=== PATIENT | female | born 1970 | race Caucasian/White ===

== ENCOUNTER 2016-12-08 19:05 | Emergency (ER) | payer OTHER ==
[~2016-12-08] VITALS: Ht 175.2 cm; Wt 64.4 kg
[~2016-12-08 19:05] MED LIST: ALBUTEROL0.09 MG/A2 INH; ALBUTEROL2.5 MG/0.5 INH; AMOXICILLIN500 M2 PO; AMOXICILLIN500 MG PO; ANAPROX DS550 MG PO; ARTHROTEC50 MG PO; ASTELIN137 MCG/AC NS; CARBAMAZEPINE200 M1 PO; CIPROFLOXACIN500 MG PO; CLARITIN-D 12 H1 TAB PO; CLARITIN10 MG PO; CLEOCIN15 MG/ML; CLEOCIN150 MG PO; CLINDAMYCIN HC300 MG PO; DARVOCET N 1001 TAB PO; DONNATAL1 TAB PO; FIORICET 325 MG1 TAB PO; FLEXERIL10 MG PO; HYDROXYZINE PAM50 MG PO; IMODIUM2 MG PO; INDERAL10 MG PO; LOPID600 MG PO; LYRICA150 MG PO; LYRICA200 MG PO; LYRICA25 MG PO; LYRICA50 MG PO; MOTRIN800 MG PO; MUCINEX1200 M1 PO; NKHM; NORFLEX100 MG PO; PHENERGAN25 M1 PO; PREDNICOT20 MG PO; Peridex 473 ML473 ML PO; SEPTRA DS 800 M1 TAB PO; TEGRETOL100 MG PO; TEGRETOL200 MG PO; TESSALON PERLE100 M1 PO; TRAMADOL HCL50 MG PO; TYLENOL W/CODEI1 TA2 PO; Tegretol-Xr 10100 MG PO; Tegretol100 MG/5 M PO; ULTRAM50 MG PO; VIBRAMYCIN HYC100 MG PO; VIBRAMYCIN100 MG PO; VICODIN 5/500 505 MG PO; VICODIN 500 MG-1 TAB PO; ZANAFLEX4 M2 PO; ZANTAC150 MG PO; ZITHROMAX Z PA250 MG PO; ZITHROMAX250 MG PO; ZOCOR5 MG PO; ZOFRAN4 MG PO; ZOVIRAX 5%15 GM T
[2016-12-08 19:45] VITALS: BP 108/72
[2016-12-08] MEDS ORDERED: VOLTAREN50 M1 PO (19:47)
[2016-12-08] MEDS ORDERED: FLONASE ALLERG9.9 ML NAS (20:31)
[2016-12-08] MEDS ORDERED: CLARITIN-D 12 H1 TAB PO (20:31)
== END 2016-12-08 20:37 | disposition home or self-care (01) ==
LOC: ED 19:05
DX: J01.90 Acute sinusitis, unspecified (principal); F17.200 Nicotine dependence, unspecified, uncomplicated; Z88.1 Allergy status to other antibiotic agents; Z88.5 Allergy status to narcotic agent; Z88.6 Allergy status to analgesic agent

== ENCOUNTER 2017-03-08 15:53 | Emergency (ER) | payer OTHER ==
[~2017-03-08] VITALS: Ht 175.2 cm; Wt 72.6 kg
[~2017-03-08 15:53] MED LIST changes: +FLONASE ALLERG9.9 ML NAS; +VOLTAREN50 M1 PO
[2017-03-08 16:01] VITALS: BP 98/73
[2017-03-08 16:35] LABS: BILIRUBIN NEGATIVE (NEGATIVE); BLOOD 1+ (NEGATIVE); CLARITY SL CLOUDY (CLEAR); COLOR YELLOW (YELLOW); GLUCOSE NEGATIVE (NEGATIVE); KETONE NEGATIVE (NEGATIVE); LEUKO ESTERASE 1+ (NEGATIVE); NITRITE NEGATIVE (NEGATIVE); PROTEIN NEGATIVE (NEGATIVE); SPECIFIC GRAVITY <= 1.005 (1.005-1.030); UROBILINOGEN 0.2 E.U./dl (0.2-1.0)
[2017-03-08 16:43] LABS: BACTERIA 2+; RBC 0-2 rbc/hpf (0-2); URINE REFLEX COMMENT YES (NO); WBC 21-30 wbc/hpf (0-5)
[2017-03-08] MEDS ORDERED: PYRIDIUM100 MG PO (16:55)
[2017-03-08] MEDS ORDERED: BACTRIM DS 8001 TA1 PO (16:55)
== END 2017-03-08 16:57 | disposition home or self-care (01) ==
LOC: ED 15:53
PROVIDERS: Nurse Practitioner Family
DX: N30.01 Acute cystitis with hematuria (principal); F17.200 Nicotine dependence, unspecified, uncomplicated; Z88.1 Allergy status to other antibiotic agents; Z88.6 Allergy status to analgesic agent; Z79.899 Other long term (current) drug therapy

== ENCOUNTER 2017-03-31 00:37 | Emergency (ER) | payer OTHER ==
[~2017-03-31] VITALS: Ht 175.2 cm; Wt 74.8 kg
[~2017-03-31 00:37] MED LIST changes: +BACTRIM DS 8001 TA1 PO; +PYRIDIUM100 MG PO
[2017-03-31 00:42] VITALS: BP 107/68
[2017-03-31 01:29] LABS: BASO % 0.5 % (0.0-1.0); EOS # 0.3 10*3/uL (0.0-0.4); EOS % 4.4 % (1.0-4.0); HEMATOCRIT 40.7 % (37.0-47.0); HEMOGLOBIN 13.9 g/dl (12.0-16.0); LYMPH # 2.9 10*3/uL (1.3-4.4); LYMPH % 39.4 % (27.0-41.0); MEAN CELL VOLUME 96.4 fl (81.0-99.0); MEAN CORPUSCULAR HGB 32.9 pg (27.0-31.0); MEAN CORPUSCULAR HGB CONC 34.2 g/dl (33.0-37.0); MEAN PLATELET VOLUME 9.9 fl (9.6-12.3); MONO # 0.4 10*3/uL (0.1-1.0); MONO % 4.8 % (3.0-9.0); NEUT # 3.8 10*3/uL (2.3-7.9); NEUT % 50.8 % (47.0-73.0); PLATELET COUNT AUTOMATED 238 10*3/uL (130-400); RED BLOOD COUNT 4.22 10*6/uL (4.10-5.10); RED CELL DISTRI WIDTH 12.9 % (0-14.5); WHITE BLOOD COUNT 7.4 10*3/uL (4.8-10.8)
[2017-03-31 01:47] LABS: ALBUMIN 3.3 gm/dl (3.1-4.5); ALKALINE PHOSPHATASE 59 U/L (45-117); BUN 13 mg/dl (7-24); CHLORIDE 105 mmol/L (98-107); CREATININE 0.62 mg/dL (0.55-1.02); LIPASE 210 U/L (73-393); MAGNESIUM 2.3 mg/dL (1.5-2.1); SGOT/AST 33 IU/L (3-35); SGPT/ALT 55 U/L (12-78); SODIUM 140 mmol/L (136-145); TOTAL PROTEIN 6.8 gm/dL (6.4-8.2)
[2017-03-31 01:49] LABS: TROPONIN I < 0.015 ng/ml (<0.045)
[2017-03-31 02:32] LABS: BILIRUBIN NEGATIVE (NEGATIVE); BLOOD NEGATIVE (NEGATIVE); CLARITY CLEAR (CLEAR); COLOR YELLOW (YELLOW); GLUCOSE NEGATIVE (NEGATIVE); KETONE NEGATIVE (NEGATIVE); LEUKO ESTERASE TRACE (NEGATIVE); NITRITE NEGATIVE (NEGATIVE); SPECIFIC GRAVITY <= 1.005 (1.005-1.030); UROBILINOGEN 0.2 E.U./dl (0.2-1.0)
[2017-03-31 02:37] LABS: EPITHELIAL CELLS 40-45
[2017-03-31] MEDS ORDERED: ZOFRAN ODT4 MG SL (03:42)
[2017-03-31] MEDS ORDERED: NORCO 5-325 TA1 EACH PO (03:42)
== END 2017-03-31 04:20 | disposition home or self-care (01) ==
LOC: ED 00:37
PROVIDERS: Emergency Medicine Emergency Medical Services
DX: N20.1 Calculus of ureter (principal); N23 Unspecified renal colic; F17.200 Nicotine dependence, unspecified, uncomplicated; Z88.1 Allergy status to other antibiotic agents; Z88.6 Allergy status to analgesic agent; Z79.899 Other long term (current) drug therapy

== ENCOUNTER 2017-08-10 09:45 | Emergency (ER) | payer OTHER ==
[~2017-08-10] VITALS: Ht 175.2 cm; Wt 72.6 kg
[~2017-08-10 09:45] MED LIST changes: +NORCO 5-325 TA1 EACH PO; +ZOFRAN ODT4 MG SL
[2017-08-10 09:54] VITALS: BP 120/80
[2017-08-10] MEDS ORDERED: KLONOPIN1 M1 PO (09:56)
[2017-08-10] MEDS ORDERED: CLINDAMYCIN HC300 MG PO (10:06)
== END 2017-08-10 10:10 | disposition home or self-care (01) ==
LOC: ED 09:45
DX: K04.7 Periapical abscess without sinus (principal); F17.200 Nicotine dependence, unspecified, uncomplicated; Z88.1 Allergy status to other antibiotic agents; Z88.6 Allergy status to analgesic agent

== ENCOUNTER → 2018-03-08 | Outpatient (CLI) | payer OTHER ==
[~2018-03-08] MED LIST changes: +CLINDAMYCIN150 MG PO; +KLONOPIN1 M1 PO
== END | disposition home or self-care (01) ==
LOC: ORTHO 01:19
DX: M16.12 Unilateral primary osteoarthritis, left hip (principal); Z91.81 History of falling

== ENCOUNTER 2018-03-10 15:53 | Emergency (ER) | payer OTHER ==
[~2018-03-10] VITALS: Ht 175.2 cm; Wt 78.9 kg
[2018-03-10 15:53] VITALS: BP 117/74
[~2018-03-10 15:53] MED LIST changes: -CLINDAMYCIN150 MG PO
[2018-03-10 17:04] LABS: BASO % 0.4 % (0.0-1.0); EOS # 0.3 10*3/uL (0.0-0.4); EOS % 3.7 % (1.0-4.0); HEMATOCRIT 39.6 % (37.0-47.0); HEMOGLOBIN 13.4 g/dl (12.0-16.0); LYMPH # 2.1 10*3/uL (1.3-4.4); LYMPH % 29.3 % (27.0-41.0); MEAN CELL VOLUME 99.2 fl (81.0-99.0); MEAN CORPUSCULAR HGB 33.6 pg (27.0-31.0); MEAN CORPUSCULAR HGB CONC 33.8 g/dl (33.0-37.0); MEAN PLATELET VOLUME 10.3 fl (9.6-12.3); MONO # 0.2 10*3/uL (0.1-1.0); MONO % 3.3 % (3.0-9.0); NEUT # 4.4 10*3/uL (2.3-7.9); NEUT % 63.2 % (47.0-73.0); PLATELET COUNT AUTOMATED 215 10*3/uL (130-400); RED BLOOD COUNT 3.99 10*6/uL (4.10-5.10); RED CELL DISTRI WIDTH 13.3 % (0-14.5)
[2018-03-10 17:15] LABS: ACT PARTIAL THROMBO TIME 22.5 SECONDS (20.8-31.5); INTERNATIONAL NORM RATIO 0.9 (2.0-3.5)
[2018-03-10 17:19] LABS: ALBUMIN 3.7 gm/dl (3.1-4.5); ALKALINE PHOSPHATASE 65 U/L (45-117); BUN 10 mg/dl (7-24); CHLORIDE 108 mmol/L (98-107); CREATININE 0.61 mg/dL (0.55-1.02); POTASSIUM 3.9 mmol/L (3.5-5.1); SGOT/AST 28 IU/L (3-35); SGPT/ALT 50 U/L (12-78); SODIUM 142 mmol/L (136-145); TOTAL PROTEIN 7.2 gm/dL (6.4-8.2)
[2018-03-10] MEDS ORDERED: CLINDAMYCIN150 MG PO (19:13)
== END 2018-03-10 19:17 | disposition left against medical advice (07) ==
LOC: ED 15:53
PROVIDERS: Physician Assistant
DX: K08.89 Other specified disorders of teeth and supporting structures (principal); F17.200 Nicotine dependence, unspecified, uncomplicated; Z88.6 Allergy status to analgesic agent; Z88.1 Allergy status to other antibiotic agents; Z88.8 Allergy status to other drugs, medicaments and biological substances; Z98.51 Tubal ligation status

== ENCOUNTER → 2018-05-02 | Outpatient (CLI) | payer OTHER ==
[~2018-05-02] MED LIST changes: +CLINDAMYCIN150 MG PO; +Tobrex Ophth S2.5 ML OPH
--- NOTE | ~2018-05-02 | EEG ---
[place], [place] ELECTROENCEPHALOGRAM REPORT [facility]: [id number] UNIT #: [id number] ROOM: DOCTOR: LYSSA SPEAR JR,TERE DOS: This 48-year-old woman on uncertain medications despite the following underlying rhythms - well organized, 9 Hz, 30-40 microvolt alpha rhythms in both posterior regions. 18 Hz, 10 microvolt beta rhythms were noted in both precentral regions. There was symmetrical attenuation of the posterior alpha rhythms with eye opening. Fair hyperventilation produced no abnormalities. There was good driving to photic stimulation without lesions. The patient did become drowsy, progressing uneventfully through stage I of somnolence. Throughout this recording, despite minimal to moderate talking and movement artifacts, there were no focal abnormalities or epileptiform discharges. IMPRESSION: Normal awake and drowsy EEG. Clinical correlation was highly advised. TERE OMALLEY MD CM:EEG:ELECTROENCEPHALOGRAM REPORT [id number] TERE OMALLEY MD, JR
== END | disposition home or self-care (01) ==
LOC: CP 11:47
DX: R56.9 Unspecified convulsions (principal)

== ENCOUNTER 2018-05-17 15:48 | Emergency (ER) | payer OTHER ==
[~2018-05-17] VITALS: Ht 175.2 cm; Wt 72.6 kg
[~2018-05-17 15:48] MED LIST changes: -Tobrex Ophth S2.5 ML OPH
[2018-05-17 15:51] VITALS: BP 130/83
[2018-05-17] MEDS ORDERED: Tobrex Ophth S2.5 ML OPH (16:06)
== END 2018-05-17 16:17 | disposition home or self-care (01) ==
LOC: ED 15:48
DX: H10.9 Unspecified conjunctivitis (principal); Z88.8 Allergy status to other drugs, medicaments and biological substances; Z88.1 Allergy status to other antibiotic agents; Z88.6 Allergy status to analgesic agent; Z79.899 Other long term (current) drug therapy

== ENCOUNTER → 2018-06-05 | Outpatient (CLI) | payer OTHER ==
[~2018-06-05] MED LIST changes: +Tobrex Ophth S2.5 ML OPH
== END | disposition home or self-care (01) ==
LOC: MRI 14:00
DX: G93.89 Other specified disorders of brain (principal); R56.9 Unspecified convulsions

== ENCOUNTER 2019-01-12 23:06 | Emergency (ER) | payer OTHER ==
[~2019-01-12] VITALS: Ht 175.2 cm; Wt 82.1 kg
[~2019-01-12 23:06] MED LIST changes: +CYCLOBENZAPRINE10 MG PO; -LYRICA150 MG PO; +LYRICA200 M1 PO
[2019-01-12 23:10] VITALS: BP 94/64
== END 2019-01-13 00:15 | disposition home or self-care (01) ==
LOC: ED 23:06
DX: H10.9 Unspecified conjunctivitis (principal); Z88.6 Allergy status to analgesic agent; Z88.1 Allergy status to other antibiotic agents

== ENCOUNTER 2019-03-16 19:41 | Emergency (ER) | payer OTHER ==
[~2019-03-16] VITALS: Ht 175.2 cm; Wt 85.3 kg
[2019-03-16 19:46] VITALS: BP 155/82
[2019-03-16] MEDS ORDERED: CHANTIX1 M1 PO (19:55)
[2019-03-16] MEDS ORDERED: CYCLOBENZAPRINE10 MG PO (19:55)
[2019-03-16] MEDS ORDERED: ADDERALL5 MG PO (19:56)
[2019-03-16] MEDS ORDERED: VITAMIN D50000 UNIT PO (19:56)
[2019-03-16] MEDS ORDERED: MEDROL DOSEPAK4 MG PO (21:51)
== END 2019-03-16 22:05 | disposition home or self-care (01) ==
LOC: ED 19:41
DX: S39.012A Strain of muscle, fascia and tendon of lower back, initial encounter (principal); M53.3 Sacrococcygeal disorders, not elsewhere classified; Z79.899 Other long term (current) drug therapy; Z88.6 Allergy status to analgesic agent; Z88.1 Allergy status to other antibiotic agents; Z88.8 Allergy status to other drugs, medicaments and biological substances; X58.XXXA Exposure to other specified factors, initial encounter; Y93.89 Activity, other specified; Y92.89 Other specified places as the place of occurrence of the external cause; Y99.8 Other external cause status

== ENCOUNTER → 2019-04-20 | Outpatient (CLI) | payer OTHER ==
[~2019-04-20] MED LIST changes: +ADDERALL5 MG PO; +CHANTIX1 M1 PO; +MEDROL DOSEPAK4 MG PO; +VITAMIN D50000 UNIT PO
[2019-04-20 10:55] LABS: PHOSPHOROUS 4.2 mg/dL (2.5-4.9)
[2019-04-20 11:23] LABS: VITAMIN D, 25-HYDROXY 45.7 ng/mL (30-100)
[2019-04-20 11:24] LABS: PTH INTACT 43.9 pg/mL (18.5-88.0)
== END | disposition home or self-care (01) ==
LOC: LAB 08:43 → MRI 08:43
PROVIDERS: Family Medicine
DX: M47.816 Spondylosis without myelopathy or radiculopathy, lumbar region (principal); M51.36 Other intervertebral disc degeneration, lumbar region; M48.061 Spinal stenosis, lumbar region without neurogenic claudication; M53.3 Sacrococcygeal disorders, not elsewhere classified; E55.9 Vitamin D deficiency, unspecified; M89.8X9 Other specified disorders of bone, unspecified site

== ENCOUNTER → 2019-05-04 | Outpatient (CLI) | payer OTHER | END | disposition home or self-care (01) | LOC: RAD 04-02 13:30 | DX: M89.8X8 Other specified disorders of bone, other site (principal); E55.9 Vitamin D deficiency, unspecified; Z78.0 Asymptomatic menopausal state ==

== ENCOUNTER 2019-07-04 17:51 | Emergency (ER) | payer OTHER ==
[~2019-07-04] VITALS: Ht 172.7 cm; Wt 86.6 kg
[2019-07-04 18:00] VITALS: BP 126/68
== END 2019-07-04 21:00 | disposition home or self-care (01) ==
LOC: ED 17:51
DX: F15.93 Other stimulant use, unspecified with withdrawal (principal); F32.9 Major depressive disorder, single episode, unspecified; E78.00 Pure hypercholesterolemia, unspecified; Z76.0 Encounter for issue of repeat prescription; Z88.6 Allergy status to analgesic agent; Z88.1 Allergy status to other antibiotic agents; Z79.899 Other long term (current) drug therapy